=== PATIENT | female | born 1940 | race Caucasian/White ===

== ENCOUNTER → 2018-12-25 | Outpatient (REF) | payer MEDICARE, BC | END | disposition home or self-care (01) | LOC: BD 12:37 | PROVIDERS: ATTEND Internal Medicine | DX: N95.1 Menopausal and female climacteric states (principal); I25.10 Atherosclerotic heart disease of native coronary artery without angina pectoris; I65.23 Occlusion and stenosis of bilateral carotid arteries ==

== ENCOUNTER 2024-08-02 15:40 | Observation (INO) | payer MEDICARE, BC ==
[2024-08-02] VITALS (24 sets, daily range): BP systolic 112–209; BP diastolic 50–90
[~2024-08-02] VITALS: Ht 152.4 cm; Wt 84.5 kg
[2024-08-02] MEDS ORDERED: MORPHINE SULFATE 4 MG/ML VIAL IV ONE ×2 (15:50→16:20)
[2024-08-02] MEDS ORDERED: NITROGLYCERIN 0.4 MG/TAB SL ONE ×2 (15:50→16:20)
[2024-08-02] MEDS ORDERED: ONDANSETRON HCl 4 MG/2 ML SDV IV ONE (15:55)
[2024-08-02 16:04] LABS: BASO% 0.5 % (0-3); EOS% 8.8 % (0-8); HEMATOCRIT 37.4 % (37.0-47.0); HEMOGLOBIN 11.8 g/dl (12.0-16.0); IMMATURE GRANULOCYTES 0.6 % (0.0-5.0); LYMPH% 18.1 % (15-41); MEAN CORPUSCULAR HGB 28.7 pG CALC (26.0-32.0); MEAN CORPUSCULAR HGB CONC 31.6 g/dL CAL (32.0-36.0); MONO% 5.9 % (2-13); NEUT# 8.1 thou/uL (2.00-7.15); NEUT% 66.1 % (42-76); RED BLOOD COUNT 4.11 mill/uL (4.20-5.60)
[2024-08-02 16:15] LABS: ALKALINE PHOSPHATASE 58 u/l (38-126); ANION GAP 15 (6-22 (CALC)); BILIRUBIN, TOTAL 0.4 mg/dL (0.02-1.3); BUN 45 mg/dL (8-23); BUN/CREATININE RATIO 15 (12-20 (CALC)); CARBON DIOXIDE 19 mmol/l (22-30); CHLORIDE 115 mmol/l (95-108); CREATININE 3.1 mg/dL (0.5-1.0); ESTIMATED GFR 14 ML/MIN (>=90 (CALC)); LIPASE 143 u/l (23-300); SGOT/AST 17 u/l (9-36); SODIUM 143 mmol/l (137-146)
[2024-08-02 16:16] LABS: ALBUMIN 4.6 g/dL (3.2-5.0); TOTAL PROTEIN 8.6 g/dL (6.3-8.2)
[2024-08-02 16:22] LABS: ACT PARTIAL THROMBO TIME 27.8 SECONDS (20.0-32.5)
[2024-08-02 16:23] LABS: PROTHROMBIN TIME 9.6 SECONDS (9.0-12.5)
[2024-08-02] MEDS ORDERED: HYDROmorphone HCL 2 MG/AMP IV ONE (17:10)
[2024-08-02] MEDS ORDERED: PROMETHAZINE HCL 25 MG/ML AMP IV ONE (18:20)
[2024-08-02] MEDS ORDERED: hydrALAZINE HCL 20 MG/ML VIAL(1 ML) IV ONE ×2 (20:10→21:25)
[2024-08-02] MEDS ORDERED: PROMETHAZINE HCL 25 MG/ML AMP IM ONE (20:45)
[2024-08-02 21:42] LABS: URINE BILIRUBIN - DIPSTICK Negative (NEGATIVE); URINE BLOOD DIPSTICK Trace-lysed (NEGATIVE); URINE COLOR Yellow; URINE GLUCOSE - DIPSTICK 250 mg/dL (NEGATIVE); URINE KETONE Negative (NEGATIVE); URINE LEUK ESTERASE Negative (NEGATIVE); URINE NITRITE - DIPSTICK Negative (Negative); URINE PH 6.5 (4.5-8.0); URINE PROTEIN - DIPSTICK >=300 mg/dL (NEG-TRACE); URINE SPECIFIC GRAVITY >=1.030; URINE UROBILINOGEN - DIPSTICK 0.2 E.U./dL (0.2)
[2024-08-02 21:51] LABS: URINE RBC 0-2 RBC/hpf (0-5); URINE SQUAMOUS EPITHELIAL CELL RARE EPI/hpf (0-FEW)
[2024-08-02] MEDS ORDERED: ACETAMINOPHEN 325 MG/TAB PO PRN (22:00)
[2024-08-02] MEDS ORDERED: SODIUM CHLORIDE 0.9% 1,000 ML IV SCH (22:00)
[2024-08-02] MEDS ORDERED: Zaleplon 5 MG/CAP PO PRN (22:00)
[2024-08-02] MEDS ORDERED: amLODIPine BESYLATE 5 MG/TAB PO SCH (22:00)
[2024-08-02] MEDS ORDERED: MAGNESIUM HYDROXIDE 30 ML UDC PO PRN (22:00)
[2024-08-02] MEDS ORDERED: MORPHINE SULFATE 4 MG/ML VIAL IV PRN (22:05)
[2024-08-02] MEDS ORDERED: ONDANSETRON HCl 4 MG/2 ML SDV IV PRN (22:10)
[2024-08-02] MEDS ORDERED: hydrALAZINE HCL 20 MG/ML VIAL(1 ML) IV PRN (22:10)
[2024-08-03] MEDS ORDERED: Heparin SODIUM (Porcine) 500 ML IV PRN (00:35)
[2024-08-03] MEDS ORDERED: SODIUM CHLORIDE 0.9% 500 ML IV ONE (00:35)
[2024-08-03] MEDS ORDERED: NITROGLYCERIN IN D5W 250 ML IV PRN (00:35)
[2024-08-03] MEDS ORDERED: NOVOLIN N100 UNIT SC (00:57)
[2024-08-03] MEDS ORDERED: AMLODIPINE BES2.5 MG PO (01:00)
[2024-08-03] MEDS ORDERED: CARVEDILOL12.5 MG PO (01:00)
[2024-08-03] MEDS ORDERED: TUMS ULTRA 101000 MG PO (01:02)
[2024-08-03 01:55] VITALS: BP 171/77
[2024-08-03] MEDS ORDERED: MORPHINE SULFATE 4 MG/ML VIAL IV SCH (02:35)
== END 2024-08-03 03:46 | disposition short-term general hospital (02) ==
LOC: ED 15:40 → ED-I 21:20 → ED 21:49 → MS2 21:50 → ICU 08-03 00:30
PROVIDERS: Emergency Medicine; ADMIT Internal Medicine; ATTEND Internal Medicine
DX: I21.4 Non-ST elevation (NSTEMI) myocardial infarction (principal); I10 Essential (primary) hypertension; I25.10 Atherosclerotic heart disease of native coronary artery without angina pectoris; I25.2 Old myocardial infarction; Z20.822 Contact with and (suspected) exposure to COVID-19
CPT/HCPCS: J1644